=== PATIENT | female | born 1955 | race Caucasian/White ===

== ENCOUNTER → 2017-07-21 | Outpatient (CLI) | payer MEDICARE, MEDICAID | LOC: RT 11:02 | PROVIDERS: ATTEND Nurse Practitioner Family | DX: J42 Unspecified chronic bronchitis (principal); R05 Cough; J84.9 Interstitial pulmonary disease, unspecified; R06.00 Dyspnea, unspecified | CPT/HCPCS: 94060; 94726; 94729 ==